=== PATIENT | male | born 1965 | race Caucasian/White ===

== ENCOUNTER 2018-06-11 08:04 | Day surgery (SDC) | payer OTHER ==
[2018-06-11] MEDS ORDERED: FENTAnyl 50 MCG/ML VIAL IV ×2 (11:00)
[2018-06-11] MEDS ORDERED: HYDROmorphONE 1 MG/5 ML IV SYRINGE IV ×3 (11:00)
[2018-06-11] MEDS ORDERED: ALBUTEROL 0.083% (NEB) 2.5 MG/3 ML AMP HHN (11:00)
[2018-06-11] MEDS ORDERED: METOCLOPRAMIDE 10 MG INJ IV (11:00)
[2018-06-11] MEDS ORDERED: DIPHENHYDRAMINE 50 MG INJ IV (11:00)
[2018-06-11] MEDS ORDERED: FENTAnyl 50 MCG/ML VIAL (11:05)
[2018-06-11] MEDS ORDERED: ROPIVACAINE 0.5 % 30 ML VIAL (11:07)
[2018-06-11] MEDS ORDERED: SUCCINYLCHOLINE CHLORIDE 100 MG/5 ML SYG IV (11:43)
[2018-06-11] MEDS ORDERED: CEFAZOLIN 1 GM INJ (11:43)
[2018-06-11] MEDS ORDERED: ROCURONIUM 50 MG INJ (11:43)
[2018-06-11] MEDS ORDERED: PROPOFOL 40 ML (11:43)
[2018-06-11] MEDS ORDERED: SUGAMMADEX SODIUM 200 MG/2 ML VIAL IV (11:43)
[2018-06-11] MEDS: LIDOCAINE 1% (MPF) 30 ML INJ (11:59)
[2018-06-11] MEDS: TRIAMCINOLONE ACET 40 MG/ML INJ (11:59)
[2018-06-11] MEDS ORDERED: PROVENTIL HFA 6.7GM INHALER (12:10)
[2018-06-11] MEDS ORDERED: KETOROLAC 30 MG INJ IV (12:30)
[2018-06-11] MEDS ORDERED: ONDANSETRON 4 MG INJ IV (12:30)
[2018-06-11] MEDS: MEPERIDINE 25 MG INJ IV (12:39)
[2018-06-11] MEDS: ONDANSETRON 4 MG INJ IV (12:39)
[2018-06-11] MEDS: OXYCODONE/ACETAMINOPHEN (5/325) TAB PO (13:21)
== END 2018-06-11 13:47 | disposition home or self-care (01) ==
LOC: SDS 08:04
DX: S83.241A Other tear of medial meniscus, current injury, right knee, initial encounter (principal); M94.261 Chondromalacia, right knee; I10 Essential (primary) hypertension; E78.5 Hyperlipidemia, unspecified; E66.01 Morbid (severe) obesity due to excess calories
CPT/HCPCS: 29881